=== PATIENT | female | born 1960 | race African-American/Black ===

== ENCOUNTER 2018-12-08 10:16 | Outpatient (CLI) | payer OTHER ==
[~2018-12-08 10:16] MED LIST: EPINEPHrine 1 MG/ML AMP ONE; Iopamidol 300 61% 50 ML VIAL FS ONE; Lidocaine 1% PF 10 ML AMP ONE; Sodium Chloride 0.9% (PF) 10 ML VIAL ONE
--- NOTE | 2018-12-08 14:07 | RAD ---
EXAM: XR Shoulder Lt Arthrogram PROVIDED CLINICAL HISTORY: Left shoulder pain. COMPARISON: None FLUOROSCOP y: Total fluoroscopy time is 1 minute with total dose of 68 mcGy meter squared TECHNIQUE: The procedure including risks and complications including bleeding were discussed with the patient, i nformed consent was obtained. Patient was placed on the fluoroscopy table in the supine position. An area overlying the superior one third of the left glenohumeral joint was marked. The area was meti culously prepped and draped in the usual sterile fashion. Skin and subcutaneous tissues were infiltrated with buffered 1% lidocaine for local anesthesia at the intended puncture site. A 22-gauge spinal needle was advanced into the left glenohumeral joint. Inner stylette was removed and injection of contrast was performed with free flow of contrast from th e tip of the needle. As a result, approximately 12 mL of a mixture consisting of nonionic contrast, sterile saline, and a small amount of epinephrine was instilled into the left glenohumeral joint. The needle was removed, and hemostasis was achieved with direct pressure. Dry sterile dressing was placed. Patient was transported to CT for further imaging. IMPRESSION: 1. Technically successful left shoulder arthrogram. Please see CT scan left shoulder post arthrogram for further details. 2. Left glenohumeral osteoarthropathy with findings suggesting intra-articular loose bodies.
--- NOTE | 2018-12-08 15:32 | CT ---
LEFT SHOULDER CT SCAN WITH POST ARTHROGRAM CONTRAST: HISTORY: Arthritis of the glenohumeral joint, left shoulder pain. FINDINGS: There are AC joint arthrosis changes with some subchondral cystic change. There are prominent hypert rophic osteophytosis changes off the superior posterior glenoid as well as the anterior and posterior humeral head regions. Irregular calcific foci are noted within the subcoracoid recess, evidence for synovial osteochondromas. Marked narrowing and sclerosis of the glenohumeral joint with some subch ondral cystic changes. No evidence for a complete full-thickness rotator cuff tear. Supraspinatus m uscle demonstrates some mild to moderate muscle volume loss. No evidence for acute fracture or dislo cation. Evidence for interstitial undersurface tearing of the subscapularis tendon. IMPRESSION: Severe glenohumeral joint arthrosis with marked joint space loss and sclerosis with extensive hypertr ophic osteophytosis off the glenoid as well as the humeral head. Multiple ossific foci within the merritt bcoracoid recess, evidence for synovial osteochondromas. Mild to moderate muscle volume loss of the supraspinatus muscle. No evidence for overt complete full-thickness or retracted rotator cuff tear. Evidence for undersurface and interstitial tearing of the subscapularis tendon. POS: [facility]
== END 2018-12-08 10:17 | disposition home or self-care (01) ==
LOC: RAD 10:16
PROVIDERS: ATTEND Orthopaedic Surgery
DX: M19.012 Primary osteoarthritis, left shoulder (principal)
CPT/HCPCS: 23350; J0171; J3490; Q9967

== ENCOUNTER 2019-03-09 12:00 | Inpatient (IN) | payer OTHER ==
[2019-03-16 12:42] VITALS: BMI 43.5
[2019-03-24] MEDS ORDERED: Levofloxacin 500 mg/D5W 100 ml Premix Bag ONE (06:22)
[2019-03-24] MEDS ORDERED: Sodium Chloride 0.9% 100 ML ONE (06:22)
[2019-03-24] MEDS ORDERED: Tranexamic Acid 1,000 MG/10 ML VIAL ONE (06:22)
[2019-03-24] MEDS ORDERED: Midazolam HCl 2 mg/2 ml Vial ONE (06:40)
[2019-03-24] MEDS ORDERED: Fentanyl 100 MCG/2 ML VIAL ONE (06:40)
[2019-03-24] MEDS ORDERED: Vancomycin HCl 1.5 GM in Sodium Chloride 0.9% 250 ML 300 ML IVPB SCH (06:45)
[2019-03-24] MEDS ORDERED: HYDROcodone/Acetaminophen 10/325 mg Tablet PO PRN ×3 (06:49→07:41)
[2019-03-24] MEDS ORDERED: traMADol HCl 50 MG TAB PO PRN ×4 (06:49→07:41)
[2019-03-24] MEDS ORDERED: Vancomycin HCl 1 GM in Premix Bag 1 BAG IVPB SCH (07:00)
[2019-03-24] MEDS ORDERED: Ropivacaine 0.2% 550 ML 550 ML NERVE BLCK SCH (07:41)
[2019-03-24] MEDS ORDERED: Zolpidem Tartrate 5 MG TAB PO PRN (07:41)
[2019-03-24] MEDS ORDERED: Ketorolac Tromethamine 30 MG/ML VIAL IVP PRN (07:41)
[2019-03-24] MEDS ORDERED: Ondansetron PF 4 MG/2 ML Vial IVP PRN (07:41)
[2019-03-24] MEDS ORDERED: Promethazine HCl 25 MG/ML VIAL IM PRN (07:41)
[2019-03-24] MEDS ORDERED: METFORMIN HCL PO SCH ×2 (09:00)
[2019-03-24] MEDS ORDERED: SAXAGLIPTIN HCL PO SCH ×2 (09:00)
[2019-03-24] MEDS ORDERED: Non-Formulary Item 1 EACH (Fluoxetine Hcl [Fluoxetine Hcl] 20 MG) PO SCH (09:00)
[2019-03-24] MEDS ORDERED: EMPAGLIFLOZIN PO SCH (09:00)
[2019-03-24] MEDS ORDERED: Non-Formulary Item 1 EACH (Insulin Detemir [Levemir Flextouch] 60 UNIT) SC SCH (09:00)
[2019-03-24] MEDS ORDERED: Topiramate 25 MG TAB PO SCH (09:00)
[2019-03-24] MEDS ORDERED: Non-Formulary Item 1 EACH (Gabapentin [Gabapentin] 2 TAB) PO SCH (09:00)
[2019-03-24] MEDS ORDERED: Non-Formulary Item 1 EACH (Empagliflozin [Jardiance] 1 TAB) PO SCH (09:00)
[2019-03-24] MEDS ORDERED: Atorvastatin Calcium 10 MG TAB PO SCH (09:00)
[2019-03-24] MEDS ORDERED: Ropivacaine 0.5% HCl/PF (150 MG/30 ML VIAL) ONE (09:42)
[2019-03-24] MEDS ORDERED: Promethazine HCl 25 MG/ML VIAL ONE (09:52)
[2019-03-24] MEDS ORDERED: PROPOFOL 200 MG/20 ML VIAL ONE (10:13)
[2019-03-24] MEDS ORDERED: Glycopyrrolate 0.2 MG/ML 5 ML SYRINGE ONE (10:13)
[2019-03-24] MEDS ORDERED: Ondansetron PF 4 MG/2 ML Vial ONE (10:13)
[2019-03-24] MEDS ORDERED: PHENYLEPHRINE-NS 100 MCG/ML 10 ML SYRINGE ONE (10:13)
[2019-03-24] MEDS ORDERED: Ketorolac Tromethamine 30 MG/ML VIAL ONE (10:13)
[2019-03-24] MEDS ORDERED: Rocuronium Bromide 10 MG/ML (10ML VIAL) ONE (10:13)
[2019-03-24] MEDS ORDERED: ePHEDrine 50 MG/ML VIAL ONE (10:13)
--- NOTE | 2019-03-24 11:24 | OP ---
DATE OF PROCEDURE: 03/24/2019 PREOPERATIVE DIAGNOSIS: Rotator cuff arthropathy, left shoulder. POSTOPERATIVE DIAGNOSIS: Rotator cuff arthropathy, left shoulder. PROCEDURES PERFORMED: Reverse total shoulder arthroplasty and biceps tenodesis. DENTAL SCHEDULER: Ekta Urbina PA-C BLOOD LOSS: 200. SPECIMEN: None. DRAIN: None. COMPLICATIONS: None. NARRATIVE REPORT: After appropriate consent was obtained, the patient was taken to the operating room where general anesthesia was induced. The patient was placed in a beach chair position. Left arm was prepped and draped in the usual sterile fashion. Oblique incision was made in the deltopectoral interval. Cephalic vein was identified and preserved. Dissection was carried down to the conjoint tendon which was retracted medially. The subscapularis was taken down. The biceps tendon was in poor condition. It was taken down off the superior glenoid tubercle and tenodesed to the pectoralis tendon. Excess tendon was removed. The shoulder was then easily dislocated. I opened the humerus with a T handle and then cut a 20 mm retroversion superior cut. The subscapularis had been previously tagged. I used a subscapularis to follow this down to the anterior glenoid and a Bankart retractor was placed anteriorly, and drill was placed posteriorly. I drilled a center hole in the glenoid and reamed with a 1-step reamer. Irrigation was performed. The base plate was deployed without difficulty. Screws were inserted in the usual technique with good compression and fixation. Glenosphere was deployed without difficulty and the screw was tightened. Attention was turned back to the humerus which was opened with a T handle, and after using the acetabular reamer, I then also used a metaphyseal reamer. The appropriate size stem was trialed and polyethylene was trialed until the implants were determined as above. I did drill holes through the humerus, and a cottony Dacron suture was placed around the prosthesis through bone to facilitate repair of the subscapularis. Irrigation was performed. Permanent implants were placed. Shoulder was reduced. The subscapularis was repaired back to bone using the cottony Dacron suture. Irrigation performed again. The deltopectoral interval was tacked shut with 0 Vicryl, subcutaneous tissue was closed with 2-0 Vicryl, skin was closed with ryan, and sterile dressing was applied. Job ID: [id number]
[2019-03-24] MEDS: Enoxaparin Sodium 40 MG/0.4 ML SYRINGE SC SCH (14:31)
[2019-03-24] MEDS: FLUoxetine HCl 20 MG CAP PO SCH (14:47)
[2019-03-24] MEDS: Atorvastatin Calcium 10 MG TAB PO SCH (14:47)
[2019-03-24] MEDS: Lactated Ringer's 1,000 ML IV SCH ×2 (14:47→20:03)
[2019-03-24] MEDS: Amlodipine 5 MG TAB PO SCH (14:47)
[2019-03-24] MEDS: Insulin Glargine 60 UNITS in Pre-Filled Syringe 1 EACH SC SCH (14:48)
[2019-03-24] MEDS: Lisinopril/Hydrochlorothiazide 20/25 mg Tablet PO SCH (14:48)
[2019-03-24] MEDS: Topiramate 25 MG TAB PO SCH ×2 (14:48→20:04)
[2019-03-24] MEDS: Gabapentin 400 MG CAP PO SCH ×2 (14:48→20:04)
[2019-03-24] MEDS ORDERED: FLU VACC QS2019-20(6MOS UP)/PF 60 MCG/0.5 ML SYRINGE IM ONE (16:00)
[2019-03-24] MEDS ORDERED: Insulin Glargine 40 UNITS in Pre-Filled Syringe 1 EACH SC SCH (21:00)
[2019-03-24] MEDS ORDERED: INSULIN DETEMIR 40 UNIT SQ SCH (21:00)
[2019-03-24] MEDS: HYDROcodone/Acetaminophen 10/325 mg Tablet PO PRN (21:21)
[2019-03-25] MEDS: HYDROcodone/Acetaminophen 10/325 mg Tablet PO PRN (08:50)
[2019-03-25] MEDS: Amlodipine 5 MG TAB PO SCH (08:51)
[2019-03-25] MEDS: Atorvastatin Calcium 10 MG TAB PO SCH (08:51)
[2019-03-25] MEDS: Enoxaparin Sodium 40 MG/0.4 ML SYRINGE SC SCH (08:51)
[2019-03-25] MEDS: Lisinopril/Hydrochlorothiazide 20/25 mg Tablet PO SCH (08:52)
[2019-03-25] MEDS: Topiramate 25 MG TAB PO SCH (08:52)
[2019-03-25] MEDS: FLUoxetine HCl 20 MG CAP PO SCH (08:52)
[2019-03-25] MEDS: Insulin Glargine 60 UNITS in Pre-Filled Syringe 1 EACH SC SCH (10:13)
[2019-03-25] MEDS: Gabapentin 400 MG CAP PO SCH (10:14)
[2019-03-25 12:26] VITALS: BP 138/78; TEMP 98.2
== END 2019-03-25 13:19 | disposition home or self-care (01) | DRG 483 ==
LOC: SURG A 03-24 06:03 → SJJU 03-24 13:45
PROVIDERS: ADMIT Orthopaedic Surgery; ATTEND Orthopaedic Surgery
PROC: 0RRK00Z Replacement of Left Shoulder Joint with Reverse Ball and Socket Synthetic Substitute, Open Approach (ICD-10-PCS; principal; 2019-03-24)
PROC: 0LS40ZZ Reposition Left Upper Arm Tendon, Open Approach (ICD-10-PCS; 2019-03-24)
DX: M19.019 Primary osteoarthritis, unspecified shoulder (principal); I10 Essential (primary) hypertension; E11.9 Type 2 diabetes mellitus without complications; F32.9 Major depressive disorder, single episode, unspecified; G43.909 Migraine, unspecified, not intractable, without status migrainosus; H91.90 Unspecified hearing loss, unspecified ear; J45.909 Unspecified asthma, uncomplicated; M75.102 Unspecified rotator cuff tear or rupture of left shoulder, not specified as traumatic; Z79.02 Long term (current) use of antithrombotics/antiplatelets; Z85.9 Personal history of malignant neoplasm, unspecified; Z90.710 Acquired absence of both cervix and uterus; Z90.722 Acquired absence of ovaries, bilateral; Z79.4 Long term (current) use of insulin; Z79.82 Long term (current) use of aspirin; Z88.0 Allergy status to penicillin; Z88.8 Allergy status to other drugs, medicaments and biological substances; Z90.49 Acquired absence of other specified parts of digestive tract; Z91.013 Allergy to seafood
CPT/HCPCS: 36416; A4306; C1713; J1650; J1815; J1956; J2250; J2405; J2550; J2795; J3010; J3370; J3490; J7050

== ENCOUNTER 2019-03-16 12:15 | Outpatient (CLI) | payer OTHER ==
[2019-03-16 13:54] LABS: #Basophils 0.1 thou/uL (0.0-0.2); #Eosinphils 0.1 thou/uL (0.0-0.7); #Lymphocytes 2.9 thou/uL (1.20-3.40); #Monocytes 0.5 thou/uL (0.11-0.59); #Neutrophils 3.3 thou/uL (1.40-6.50); %Basophils 0.8 % (0.0-1.0); %Eosinophils 1.9 % (0.0-10.0); %Lymphocytes 41.7 % (21.0-51.0); %Monocytes 7.6 % (0.0-10.0); Hemoglobin 12.7 g/dL (12.0-16.0); Mean Corpuscular Hemoglobin 27.1 pg (27.0-31.0); Mean Corpuscular Volume 84.8 fL (78.0-98.0); Mean Platelet Volume 10.1 fL (7.4-10.4); Platelet Count 257 thou/uL (130-400); RBC Distribution Width 14.2 % (11.5-14.5); Red Blood Cell (RBC) Count 4.69 mill/uL (4.20-5.40); White Blood Cell (WBC) Count 6.9 thou/uL (4.8-10.8)
[2019-03-16 14:01] LABS: Bacteria/HPF None Seen HPF (None Seen); Bilirubin Negative (Negative); Blood, Urine Negative (Negative); Clarity Clear (Clear); Glucose, Urine (Dipstick) Greater than 1000 mg/dL (Negative); Leukocyte Negative Leu/uL (Negative); Nitrite Negative (Negative); Protein, Urine (Dipstick) Negative (Neg-Trace); RBC/HPF 0-3 HPF (0-3); Squamous Epithelial None Seen HPF (0-3); Urobilinogen Normal mg/dL (Less than 2); WBC/HPF 0-3 HPF (0-3)
[2019-03-16 14:12] LABS: Prothrombin Time 12.7 SEC (12.0-14.7)
[2019-03-16 14:15] LABS: Anion Gap 12 mmol/L (10-20); BUN (Urea Nitrogen) 16 mg/dL (9.8-20.1); Calc. Creatinine Clearance 0 mL/min (70-130); Calcium 9.7 mg/dL (7.8-10.44); Carbon Dioxide 25 mmol/L (22-29); Chloride 107 mmol/L (98-107); Estimated GFR-MDRD 74; Glucose 118 mg/dL (70-105); Potassium 3.7 mmol/L (3.5-5.1); Sodium 140 mmol/L (136-145)
--- NOTE | 2019-03-20 17:11 | EKG ---
Test Reason : Blood Pressure : / mmHG Vent. Rate : 054 BPM Atrial Rate : 054 BPM P-R Int : 190 ms QRS Dur : 158 ms QT Int : 482 ms P-R-T Axes : 015 -83 016 degrees QTc Int : 457 ms Sinus bradycardia with occasional Premature ventricular complexes and Possible Premature atrial compl exes with Abberant conduction Left axis deviation Right bundle branch block Abnormal ECG When compared with ECG of 01-MAY-2016 14:44, Premature ventricular complexes are now Present Nonspecific T wave abnormality, improved in Anterior leads Confirmed by VALENTINO CASTELAN (2) on 03/20/2019 5:11:25 PM Referred By: SARAH Confirmed By:VALENTINO CASTELAN
== END 2019-03-16 12:16 | disposition home or self-care (01) ==
LOC: LABBT 12:15
PROVIDERS: ATTEND Orthopaedic Surgery
DX: Z01.818 Encounter for other preprocedural examination (principal); M75.102 Unspecified rotator cuff tear or rupture of left shoulder, not specified as traumatic; M19.012 Primary osteoarthritis, left shoulder
CPT/HCPCS: 80048; 81001; 85025; 85610; 85730; 93005; 93010

== ENCOUNTER 2023-01-21 13:15 | Outpatient (CLI) | payer OTHER | END 2023-01-21 13:16 | disposition home or self-care (01) | LOC: PET 13:15 | PROVIDERS: ATTEND Internal Medicine Hematology & Oncology | DX: R59.1 Generalized enlarged lymph nodes (principal); C91.10 Chronic lymphocytic leukemia of B-cell type not having achieved remission | CPT/HCPCS: 78815; A9552 ==

== ENCOUNTER 2023-11-25 15:47 | Emergency (ER) | payer OTHER | END 2023-11-25 16:30 | disposition home or self-care (01) | LOC: ERS 15:47 | DX: H00.012 Hordeolum externum right lower eyelid (principal); H02.842 Edema of right lower eyelid; E11.40 Type 2 diabetes mellitus with diabetic neuropathy, unspecified; I10 Essential (primary) hypertension; Z86.73 Personal history of transient ischemic attack (TIA), and cerebral infarction without residual deficits | CPT/HCPCS: 99282 ==

== ENCOUNTER 2024-01-08 13:15 | Observation (INO) | payer OTHER ==
[2024-01-08] MEDS ORDERED: Ondansetron ODT 4 MG TAB ONE (14:51)
[2024-01-08] MEDS ORDERED: Meclizine HCl 25 MG TAB ONE (14:51)
[2024-01-08 15:24] LABS: #Basophils Less than 0.03 10x3/uL (0.0-0.2); %Basophils 0.2 % (0.0-1.0); %Eosinophils 1.1 % (0.0-10.0); %Lymphocytes 34.6 % (21.0-51.0); %Monocytes 9.6 % (0.0-10.0); %Neutrophils 54.1 % (42.0-75.0); Hematocrit 41.4 % (36.0-47.0); Hemoglobin 12.9 g/dL (12.0-16.0); Mean Corpuscular HGB CONC 31.2 g/dL (32.0-36.0); Mean Corpuscular Hemoglobin 27.4 pg (27.0-31.0); Mean Corpuscular Volume 87.9 fL (78.0-98.0); Mean Platelet Volume 11.2 fL (7.4-10.4); Platelet Count 287 10x3/uL (130-400); RBC Distribution Width 15.9 % (11.5-14.5); Red Blood Cell (RBC) Count 4.71 mill/uL (4.20-5.40)
[2024-01-08] MEDS ORDERED: Acetaminophen 500 MG TAB ONE (15:52)
[2024-01-08 15:53] LABS: ALT (SGPT) 33 U/L (8-55); AST (SGOT) 31 U/L (5-34); Albumin 3.7 g/dL (3.4-4.8); Alkaline Phosphatase 111 U/L (40-110); Anion Gap 10 mmol/L (10-20); BUN (Urea Nitrogen) 7 mg/dL (9.8-20.1); Bilirubin, Total 0.6 mg/dL (0.2-1.2); Calc. Creatinine Clearance 0 mL/min (70-130); Calcium 9.1 mg/dL (7.8-10.44); Carbon Dioxide 25 mmol/L (23-31); Chloride 110 mmol/L (98-107); Estimated GFR 85; Globulin 3.4 g/dL (2.4-3.5); Glucose 143 mg/dL (80-115); Potassium 3.4 mmol/L (3.5-5.1); Protein, Total 7.1 g/dL (5.8-8.1); Sodium 142 mmol/L (136-145)
[2024-01-08] MEDS ORDERED: Iopamidol-370 76% 500 ML MDV (1 ML CHARGE) ONE (15:55)
[2024-01-08 17:21] LABS: Magnesium 2.1 mg/dL (1.6-2.6)
[2024-01-08 17:24] LABS: Troponin I Less than 0.010 ng/mL (< 0.028)
[2024-01-08] MEDS ORDERED: Insulin Lispro 100 UNIT/ML 10 ML VIAL SC PRN (18:14)
[2024-01-08] MEDS ORDERED: hydrALAZINE 20 MG/ML VIAL SLOW IVP PRN (18:14)
[2024-01-08] MEDS ORDERED: Dextrose 5% in Water 1,000 ML IV PRN (18:14)
[2024-01-08] MEDS ORDERED: Dextrose 50% Abboject 50 ML SYRINGE SLOW IVP PRN (18:14)
[2024-01-08] MEDS ORDERED: Glucagon 1 MG/ML KIT IM PRN (18:14)
[2024-01-08] MEDS ORDERED: Potassium Chloride 20 MEQ TAB PO SCH (18:30)
[2024-01-08] MEDS ORDERED: Clopidogrel Bisulfate 75 MG TAB PO SCH (18:30)
[2024-01-08] MEDS ORDERED: Meclizine HCl 25 MG TAB PO PRN (19:05)
[2024-01-08] MEDS ORDERED: Heparin 5,000 UNITS/ML VIAL SC SCH (21:00)
[2024-01-08] MEDS ORDERED: Atorvastatin Calcium 40 MG TAB PO SCH (21:00)
[2024-01-09] MEDS ORDERED: Clopidogrel Bisulfate 75 MG TAB PO SCH (09:00)
== END 2024-01-08 22:14 | disposition left against medical advice (07) ==
LOC: ERS 13:15 → ERHOLD 18:00
PROVIDERS: ADMIT Internal Medicine; ATTEND Internal Medicine
DX: R29.90 Unspecified symptoms and signs involving the nervous system (principal); R47.81 Slurred speech; I25.10 Atherosclerotic heart disease of native coronary artery without angina pectoris; E11.9 Type 2 diabetes mellitus without complications; G47.33 Obstructive sleep apnea (adult) (pediatric); E78.5 Hyperlipidemia, unspecified; K75.81 Nonalcoholic steatohepatitis (NASH); I10 Essential (primary) hypertension; Z79.82 Long term (current) use of aspirin; Z91.013 Allergy to seafood; Z88.0 Allergy status to penicillin; Z79.4 Long term (current) use of insulin; Z79.899 Other long term (current) drug therapy; Z79.02 Long term (current) use of antithrombotics/antiplatelets; Z86.73 Personal history of transient ischemic attack (TIA), and cerebral infarction without residual deficits; Z90.710 Acquired absence of both cervix and uterus
CPT/HCPCS: 36415; 70450; 70496; 70498; 80053; 83735; 84484; 85025; 93005; G0378; Q0162; Q9967

== ENCOUNTER 2024-02-10 13:36 | Outpatient (CLI) | payer OTHER ==
[~2024-02-10 13:36] MED LIST changes: -EPINEPHrine 1 MG/ML AMP ONE; -Iopamidol 300 61% 50 ML VIAL FS ONE; -Lidocaine 1% PF 10 ML AMP ONE; +Magnevist 469MG/ML 20 ML VIAL ONE; -Sodium Chloride 0.9% (PF) 10 ML VIAL ONE
== END 2024-02-10 13:37 | disposition home or self-care (01) ==
LOC: MRI 13:36
PROVIDERS: ATTEND Nurse Practitioner Family
DX: Z86.73 Personal history of transient ischemic attack (TIA), and cerebral infarction without residual deficits (principal); I67.89 Other cerebrovascular disease
CPT/HCPCS: 70553; 76377; A9579

== ENCOUNTER 2024-06-07 15:39 | Emergency (ER) | payer OTHER | END 2024-06-07 17:55 | disposition left against medical advice (07) | LOC: ERS 15:39 | DX: Z53.21 Procedure and treatment not carried out due to patient leaving prior to being seen by health care provider (principal) ==

== ENCOUNTER 2025-02-01 10:15 | Outpatient (CLI) | payer MEDICAID | END 2025-02-01 10:16 | disposition home or self-care (01) | LOC: PET 10:15 | PROVIDERS: ATTEND Internal Medicine Hematology & Oncology | DX: C83.05 Small cell B-cell lymphoma, lymph nodes of inguinal region and lower limb (principal); E66.01 Morbid (severe) obesity due to excess calories; R59.0 Localized enlarged lymph nodes | CPT/HCPCS: 78815; A9552 ==

== ENCOUNTER 2025-02-21 20:17 | Inpatient (IN) | payer MEDICARE, MEDICAID ==
[~2025-02-21 20:17] MED LIST changes: +Iopamidol-370 76% 500 ML MDV (1 ML CHARGE) ONE; -Magnevist 469MG/ML 20 ML VIAL ONE
[2025-02-21] MEDS ORDERED: Ondansetron PF 4 MG/2 ML Vial ONE (22:41)
[2025-02-21 22:53] LABS: Hematocrit 13.9 % (36.0-47.0); Hemoglobin 4.2 g/dL (12.0-16.0); Mean Corpuscular Hemoglobin 35.3 pg (27.0-31.0); Mean Corpuscular Volume 116.8 fL (78.0-98.0); Platelet Count 399 10x3/uL (130-400); Red Blood Cell (RBC) Count 1.19 mill/uL (4.20-5.40); White Blood Cell (WBC) Count 12.77 10x3/uL (4.8-10.8)
[2025-02-21 22:55] LABS: ALT (SGPT) 15 U/L (Less than 34); AST (SGOT) 39 U/L (11-34); Albumin 3.3 g/dL (3.1-4.5); Alkaline Phosphatase 121 U/L (40-110); Anion Gap 14 mmol/L (10-20); BUN (Urea Nitrogen) 21 mg/dL (9.8-20.1); Bilirubin, Total 5.6 mg/dL (0.3-1.2); Calc. Creatinine Clearance 0 mL/min (70-130); Calcium 8.3 mg/dL (7.8-10.44); Carbon Dioxide 22 mmol/L (23-31); Chloride 107 mmol/L (98-107); Globulin 4.1 g/dL (2.4-3.5); Glucose 249 mg/dL (80-115); Magnesium 2.5 mg/dL (1.6-2.6); Potassium 4.0 mmol/L (3.5-5.1); Sodium 139 mmol/L (136-145)
[2025-02-21 23:15] LABS: Anisocytosis SLIGHT = 6-15 cells HPF (0-5); Macrocytosis SLIGHT = 6-15 cells HPF (0-5); Nucleated RBC (Manual Ct) 16 % (0); Platelet Adequacy Comment Platelets Normal; Polychromasia SLIGHT = 2-3 cells HPF (0-2); Smudge Cells 8.8 %; Stomatocytes SLIGHT = 2-5 cells HPF (0-1)
[2025-02-21 23:39] LABS: Bacteria/HPF None Seen HPF (None Seen); CAUTI Indications for Culture < 2yrs of age; Glucose, Urine (Dipstick) Greater than 1000 mg/dL (Negative); Leukocyte 25 Leu/uL (Negative); Protein, Urine (Dipstick) Negative (Neg-Trace); RBC/HPF 0-3 HPF (0-3); Specific Gravity, Urine 1.023 (1.002-1.036); WBC/HPF 0-3 HPF (0-3)
[2025-02-21 23:40] LABS: Urine Culture Reflex Yes Yes
[2025-02-22 01:21] LABS: Iron 240 ug/dL (50-170); Iron Binding Capacity, Total 235 mcg/dL (265-497)
[2025-02-22] MEDS ORDERED: Glucagon 1 MG/ML KIT IM PRN (01:37)
[2025-02-22] MEDS ORDERED: Ondansetron PF 4 MG/2 ML Vial IVP PRN (01:37)
[2025-02-22] MEDS ORDERED: Dextrose 50% Abboject 50 ML SYRINGE SLOW IVP PRN (01:37)
[2025-02-22 02:15] VITALS: BMI 39.0
[2025-02-22 05:09] LABS: Ferritin 2060.11 ng/mL (10-291)
[2025-02-22 05:11] LABS: Vitamin B12 662.0 pg/mL (211-911)
[2025-02-22 08:00] LABS: Hematocrit 13.4 % (36.0-47.0); Hemoglobin 4.0 g/dL (12.0-16.0); Mean Corpuscular Hemoglobin 36.4 pg (27.0-31.0); Mean Corpuscular Volume 121.8 fL (78.0-98.0); Platelet Count 384 10x3/uL (130-400); Red Blood Cell (RBC) Count 1.10 mill/uL (4.20-5.40); White Blood Cell (WBC) Count 13.93 10x3/uL (4.8-10.8)
[2025-02-22 08:13] LABS: ALT (SGPT) 14 U/L (Less than 34); AST (SGOT) 37 U/L (11-34); Albumin 3.2 g/dL (3.1-4.5); Alkaline Phosphatase 117 U/L (40-110); Anion Gap 14 mmol/L (10-20); BUN (Urea Nitrogen) 21 mg/dL (9.8-20.1); Bilirubin, Total 5.3 mg/dL (0.3-1.2); Calc. Creatinine Clearance 130 mL/min (70-130); Calcium 8.0 mg/dL (7.8-10.44); Carbon Dioxide 19 mmol/L (23-31); Chloride 109 mmol/L (98-107); Globulin 4.3 g/dL (2.4-3.5); Glucose 271 mg/dL (80-115); Potassium 4.2 mmol/L (3.5-5.1); Sodium 138 mmol/L (136-145)
[2025-02-22 08:14] LABS: Bilirubin, Direct 1.0 mg/dL (0.1-0.3); Uric Acid 9.5 mg/dL (2.5-6.2)
[2025-02-22] MEDS ORDERED: diphenhydrAMINE 25 MG CAP PO PRN (08:53)
[2025-02-22] MEDS ORDERED: OCTAGAM 10% (5 GM/50 ML VIAL) IVPB SCH (09:00)
[2025-02-22 09:13] LABS: Macrocytosis MODERATE=16-30 cells HPF (0-5); Nucleated RBC (Manual Ct) 13 % (0); Platelet Adequacy Comment Platelets Normal; Polychromasia MODERATE = 3-4 cells HPF (0-2); Smudge Cells 5.6 %; Spherocytes SLIGHT = 1-5 cells HPF (None Seen); Stomatocytes SLIGHT = 2-5 cells HPF (0-1)
[2025-02-22] MEDS: Ciprofloxacin Lactate/D5W 400 MG in Premix 1 BAG IVPB SCH (09:36)
[2025-02-22] MEDS: Mupirocin 1 GM TUBE TP SCH (09:36)
[2025-02-22] MEDS: Allopurinol 300 MG TAB PO SCH (09:36)
[2025-02-22] MEDS: PRIVIGEN IVPB SCH (10:21)
[2025-02-22 12:38] LABS: Glucose 317 mg/dL (80-115)
[2025-02-22] MEDS: Pantoprazole 40 MG DR.TAB PO SCH (13:31)
[2025-02-22 17:51] LABS: Hematocrit 17.0 % (36.0-47.0); Hemoglobin 5.4 g/dL (12.0-16.0); Mean Corpuscular Hemoglobin 33.3 pg (27.0-31.0); Mean Corpuscular Volume 104.9 fL (78.0-98.0); Platelet Count 367 10x3/uL (130-400); Red Blood Cell (RBC) Count 1.62 mill/uL (4.20-5.40); White Blood Cell (WBC) Count 12.50 10x3/uL (4.8-10.8)
[2025-02-22 18:10] LABS: Glucose 565 mg/dL (80-115)
[2025-02-22 18:50] LABS: Anisocytosis MODERATE=16-30 cells HPF (0-5); Macrocytosis SLIGHT = 6-15 cells HPF (0-5); Nucleated RBC (Manual Ct) 17 % (0); Platelet Adequacy Comment Platelets Normal; Polychromasia MODERATE = 3-4 cells HPF (0-2); Schistocytes SLIGHT = 2-5 cells HPF (0-1); Smudge Cells 5.6 %; Stomatocytes MODERATE= 6-15 cells HPF (0-1); Toxic Granulation SLIGHT
[2025-02-22] MEDS: HumuLIN 70/30 100 Unit/ml 10 ml Vial SC SCH (20:42)
[2025-02-23 01:29] LABS: Hematocrit 16.0 % (36.0-47.0); Hemoglobin 4.9 g/dL (12.0-16.0); Mean Corpuscular Hemoglobin 31.6 pg (27.0-31.0); Mean Corpuscular Volume 103.2 fL (78.0-98.0); Platelet Count 338 10x3/uL (130-400); Red Blood Cell (RBC) Count 1.55 mill/uL (4.20-5.40); White Blood Cell (WBC) Count 13.14 10x3/uL (4.8-10.8)
[2025-02-23 02:07] LABS: Anisocytosis SLIGHT = 6-15 cells HPF (0-5); Macrocytosis SLIGHT = 6-15 cells HPF (0-5); Nucleated RBC (Manual Ct) 28 % (0); Platelet Adequacy Comment Platelets Normal; Polychromasia MODERATE = 3-4 cells HPF (0-2)
[2025-02-23 02:44] LABS: ALT (SGPT) 13 U/L (Less than 34); AST (SGOT) 28 U/L (11-34); Albumin 2.9 g/dL (3.1-4.5); Alkaline Phosphatase 108 U/L (40-110); Anion Gap 8 mmol/L (10-20); BUN (Urea Nitrogen) 27 mg/dL (9.8-20.1); Bilirubin, Direct 0.8 mg/dL (0.1-0.3); Bilirubin, Total 2.8 mg/dL (0.3-1.2); Calc. Creatinine Clearance 118 mL/min (70-130); Calcium 7.6 mg/dL (7.8-10.44); Carbon Dioxide 21 mmol/L (23-31); Chloride 107 mmol/L (98-107); Globulin 4.6 g/dL (2.4-3.5); Glucose 339 mg/dL (80-115); Potassium 3.9 mmol/L (3.5-5.1); Sodium 132 mmol/L (136-145); Uric Acid 8.0 mg/dL (2.5-6.2)
[2025-02-23] MEDS: Pantoprazole 40 MG DR.TAB PO SCH (08:31)
[2025-02-23 08:41] LABS: Hematocrit 25.1 % (36.0-47.0); Hemoglobin 7.9 g/dL (12.0-16.0); Mean Corpuscular Hemoglobin 30.9 pg (27.0-31.0); Mean Corpuscular Volume 98.0 fL (78.0-98.0); Platelet Count 305 10x3/uL (130-400); Red Blood Cell (RBC) Count 2.56 mill/uL (4.20-5.40); White Blood Cell (WBC) Count 12.14 10x3/uL (4.8-10.8)
[2025-02-23] MEDS ORDERED: Bupivacaine 0.25% HCL 30 ML VIAL ONE (15:01)
[2025-02-23] MEDS ORDERED: Bacitracin Zinc Ointment 30 gm TUBE ONE (15:01)
[2025-02-23] MEDS ORDERED: Lidocaine 2% PF 100 mg/5 ml Syringe ONE (15:06)
[2025-02-23] MEDS ORDERED: Ondansetron PF 4 MG/2 ML Vial ONE (15:06)
[2025-02-23] MEDS ORDERED: PROPOFOL 20 ML ONE ×2 (15:06→16:03)
[2025-02-23] MEDS ORDERED: Sodium Bicarb 50 MEQ/50 ML Abboject 8.4% SYRINGE ONE (15:10)
[2025-02-23] MEDS ORDERED: Sodium Bicarbonate 2.5 MEQ/5 ML SDV ONE (15:11)
[2025-02-23] MEDS ORDERED: fentaNYL PF 100 MCG/2 ML SYRINGE ONE (15:14)
[2025-02-23 16:35] VITALS: BMI 38.9
[2025-02-23] MEDS: Acetaminophen 325 MG TAB PO PRN (23:20)
[2025-02-24 03:28] LABS: Hematocrit 23.0 % (36.0-47.0); Hemoglobin 7.4 g/dL (12.0-16.0); Mean Corpuscular Hemoglobin 32.0 pg (27.0-31.0); Mean Corpuscular Volume 99.6 fL (78.0-98.0); Platelet Count 269 10x3/uL (130-400); Red Blood Cell (RBC) Count 2.31 mill/uL (4.20-5.40); White Blood Cell (WBC) Count 11.65 10x3/uL (4.8-10.8)
[2025-02-24 03:44] LABS: ALT (SGPT) 27 U/L (Less than 34); AST (SGOT) 56 U/L (11-34); Albumin 2.7 g/dL (3.1-4.5); Alkaline Phosphatase 109 U/L (40-110); Anion Gap 8 mmol/L (10-20); BUN (Urea Nitrogen) 21 mg/dL (9.8-20.1); Bilirubin, Total 1.9 mg/dL (0.3-1.2); Calc. Creatinine Clearance 136 mL/min (70-130); Calcium 7.3 mg/dL (7.8-10.44); Carbon Dioxide 20 mmol/L (23-31); Chloride 109 mmol/L (98-107); Globulin 5.3 g/dL (2.4-3.5); Glucose 256 mg/dL (80-115); Potassium 3.6 mmol/L (3.5-5.1); Sodium 133 mmol/L (136-145)
[2025-02-24 03:54] LABS: Anisocytosis MODERATE=16-30 cells HPF (0-5); Burr Cells SLIGHT = 2-5 cells HPF (0-1); Macrocytosis SLIGHT = 6-15 cells HPF (0-5); Nucleated RBC (Manual Ct) 31 % (0); Platelet Adequacy Comment Platelets Normal; Polychromasia MODERATE = 3-4 cells HPF (0-2); Smudge Cells 13.2 %
[2025-02-24] MEDS: PNEUMOC 20-VAL CONJ-DIP CRM/PF 0.5 ML SYRINGE IM ONE (12:44)
[2025-02-25 04:14] LABS: Hematocrit 23.6 % (36.0-47.0); Hemoglobin 7.7 g/dL (12.0-16.0); Mean Corpuscular Hemoglobin 33.6 pg (27.0-31.0); Mean Corpuscular Volume 103.1 fL (78.0-98.0); Platelet Count 234 10x3/uL (130-400); Red Blood Cell (RBC) Count 2.29 mill/uL (4.20-5.40); White Blood Cell (WBC) Count 9.72 10x3/uL (4.8-10.8)
[2025-02-25 04:48] LABS: ALT (SGPT) 39 U/L (Less than 34); AST (SGOT) 62 U/L (11-34); Albumin 2.7 g/dL (3.1-4.5); Alkaline Phosphatase 104 U/L (40-110); Anion Gap 7 mmol/L (10-20); BUN (Urea Nitrogen) 13 mg/dL (9.8-20.1); Bilirubin, Total 1.3 mg/dL (0.3-1.2); Calc. Creatinine Clearance 140 mL/min (70-130); Calcium 7.7 mg/dL (7.8-10.44); Carbon Dioxide 18 mmol/L (23-31); Chloride 111 mmol/L (98-107); Globulin 5.7 g/dL (2.4-3.5); Glucose 193 mg/dL (80-115); Potassium 4.0 mmol/L (3.5-5.1); Sodium 132 mmol/L (136-145)
[2025-02-25 04:50] LABS: Anisocytosis MODERATE=16-30 cells HPF (0-5); Macrocytosis SLIGHT = 6-15 cells HPF (0-5); Nucleated RBC (Manual Ct) 33 % (0); Platelet Adequacy Comment Platelets Normal; Polychromasia MODERATE = 3-4 cells HPF (0-2); Smudge Cells 10.7 %; Spherocytes SLIGHT = 1-5 cells HPF (None Seen)
[2025-02-25] MEDS: Insulin Glargine 30 UNITS/0.3 ML VIAL SC SCH (10:34)
[2025-02-25] MEDS: Senokot S 8.6-50 MG TAB PO SCH (21:58)
[2025-02-26 05:07] LABS: ALT (SGPT) 49 U/L (Less than 34); AST (SGOT) 70 U/L (11-34); Albumin 2.6 g/dL (3.1-4.5); Alkaline Phosphatase 110 U/L (40-110); Anion Gap 8 mmol/L (10-20); BUN (Urea Nitrogen) 14 mg/dL (9.8-20.1); Bilirubin, Total 1.5 mg/dL (0.3-1.2); Calc. Creatinine Clearance 170 mL/min (70-130); Calcium 8.1 mg/dL (7.8-10.44); Carbon Dioxide 21 mmol/L (23-31); Chloride 108 mmol/L (98-107); Globulin 5.4 g/dL (2.4-3.5); Glucose 229 mg/dL (80-115); Potassium 3.6 mmol/L (3.5-5.1); Sodium 133 mmol/L (136-145)
[2025-02-26 05:18] LABS: Hematocrit 27.0 % (36.0-47.0); Hemoglobin 8.6 g/dL (12.0-16.0); Mean Corpuscular Hemoglobin 31.9 pg (27.0-31.0); Mean Corpuscular Volume 100.0 fL (78.0-98.0); Platelet Count 214 10x3/uL (130-400); Red Blood Cell (RBC) Count 2.70 mill/uL (4.20-5.40); White Blood Cell (WBC) Count 7.88 10x3/uL (4.8-10.8)
[2025-02-26 05:49] LABS: Anisocytosis MODERATE=16-30 cells HPF (0-5); Macrocytosis SLIGHT = 6-15 cells HPF (0-5); Nucleated RBC (Manual Ct) 32 % (0); Plasma Cells 1 % (0-0); Platelet Adequacy Comment Platelets Normal; Polychromasia MODERATE = 3-4 cells HPF (0-2); Smudge Cells 17.3 %
[2025-02-26] MEDS: Insulin Glargine 30 UNITS/0.3 ML VIAL SC SCH (21:19)
[2025-02-27 10:27] LABS: Hematocrit 29.5 % (36.0-47.0); Hemoglobin 9.5 g/dL (12.0-16.0); Mean Corpuscular Hemoglobin 32.1 pg (27.0-31.0); Mean Corpuscular Volume 99.7 fL (78.0-98.0); Platelet Count 216 10x3/uL (130-400); Red Blood Cell (RBC) Count 2.96 mill/uL (4.20-5.40); White Blood Cell (WBC) Count 8.27 10x3/uL (4.8-10.8)
[2025-02-27 10:32] LABS: Anion Gap 12 mmol/L (10-20); BUN (Urea Nitrogen) 14 mg/dL (9.8-20.1); Calc. Creatinine Clearance 164 mL/min (70-130); Calcium 8.6 mg/dL (7.8-10.44); Carbon Dioxide 23 mmol/L (23-31); Chloride 104 mmol/L (98-107); Glucose 151 mg/dL (80-115); Potassium 3.5 mmol/L (3.5-5.1)
[2025-02-27 10:41] LABS: Sodium 135 mmol/L (136-145)
[2025-02-27 11:02] LABS: Anisocytosis SLIGHT = 6-15 cells HPF (0-5); Nucleated RBC (Manual Ct) 15 % (0); Platelet Adequacy Comment Platelets Normal; Polychromasia MODERATE = 3-4 cells HPF (0-2); Smudge Cells 18.4 %; Stomatocytes MODERATE= 6-15 cells HPF (0-1)
[2025-02-28 05:00] LABS: Anion Gap 10 mmol/L (10-20); BUN (Urea Nitrogen) 13 mg/dL (9.8-20.1); Calc. Creatinine Clearance 161 mL/min (70-130); Calcium 8.8 mg/dL (7.8-10.44); Carbon Dioxide 24 mmol/L (23-31); Chloride 103 mmol/L (98-107); Glucose 140 mg/dL (80-115); Potassium 3.7 mmol/L (3.5-5.1); Sodium 133 mmol/L (136-145)
[2025-02-28 05:17] LABS: Hematocrit 34.9 % (36.0-47.0); Hemoglobin 11.0 g/dL (12.0-16.0); Mean Corpuscular Hemoglobin 30.3 pg (27.0-31.0); Mean Corpuscular Volume 96.1 fL (78.0-98.0); Platelet Count 208 10x3/uL (130-400); Red Blood Cell (RBC) Count 3.63 mill/uL (4.20-5.40); White Blood Cell (WBC) Count 7.92 10x3/uL (4.8-10.8)
[2025-02-28 05:43] LABS: Anisocytosis SLIGHT = 6-15 cells HPF (0-5); Macrocytosis SLIGHT = 6-15 cells HPF (0-5); Nucleated RBC (Manual Ct) 4 % (0); Plasma Cells 1 % (0-0); Platelet Adequacy Comment Platelets Normal; Polychromasia MODERATE = 3-4 cells HPF (0-2); Schistocytes SLIGHT = 2-5 cells HPF (0-1); Smudge Cells 24.3 %; Stomatocytes MODERATE= 6-15 cells HPF (0-1)
[2025-02-28 18:42] VITALS: BP 137/78; TEMP 97.9
== END 2025-02-28 17:50 | disposition home or self-care (01) | DRG 803 ==
LOC: ERS 20:17 → ERHOLD 23:56 → EEVIPCON 02-22 00:35 → OBSVTOIN 02-22 00:35 → IMCU/EMU 02-22 00:50 → UNDODISIN 02-23 08:49 → MSONC 02-25 08:38
PROVIDERS: ADMIT Internal Medicine; ATTEND Family Medicine
PROC: 07B60ZZ Excision of Left Axillary Lymphatic, Open Approach (ICD-10-PCS; principal; 2025-02-22)
PROC: 30233N1 Transfusion of Nonautologous Red Blood Cells into Peripheral Vein, Percutaneous Approach (ICD-10-PCS; 2025-02-22)
PROC: 3E03329 Introduction of Other Anti-infective into Peripheral Vein, Percutaneous Approach (ICD-10-PCS; 2025-02-22)
DX: D59.10 Autoimmune hemolytic anemia, unspecified (principal); C81.10 Nodular sclerosis Hodgkin lymphoma, unspecified site; E87.1 Hypo-osmolality and hyponatremia; Z68.41 Body mass index [BMI] 40.0-44.9, adult; I10 Essential (primary) hypertension; K52.9 Noninfective gastroenteritis and colitis, unspecified; K76.0 Fatty (change of) liver, not elsewhere classified; G47.33 Obstructive sleep apnea (adult) (pediatric); E11.9 Type 2 diabetes mellitus without complications; I95.1 Orthostatic hypotension; E66.9 Obesity, unspecified; Z98.890 Other specified postprocedural states; Z90.49 Acquired absence of other specified parts of digestive tract; Z90.710 Acquired absence of both cervix and uterus; Z95.5 Presence of coronary angioplasty implant and graft; Z88.8 Allergy status to other drugs, medicaments and biological substances; Z91.013 Allergy to seafood; Z88.0 Allergy status to penicillin; Z79.02 Long term (current) use of antithrombotics/antiplatelets; Z86.73 Personal history of transient ischemic attack (TIA), and cerebral infarction without residual deficits
CPT/HCPCS: 36415; 36416; 36430; 70450; 71045; 74177; 80048; 80053; 81001; 82247; 82248; 82274; 82607; 82728; 83010; 83540; 83550; 83615; 83735; 83880; 84100; 84484; 84550; 85025; 85046; 86850; 86860; 86870; 86880; 86900; 86901; 86905; 86921; 86978; 87086; 87428; 88184; 88185; 88307; 93005; 93306; 96361; 96374; 96375; J0169; J0665; J0744; J1100; J1459; J1815; J2003; J2250; J2270; J2405; J2704; J7512; P9016; Q9967

== ENCOUNTER 2025-03-15 16:01 | Inpatient (IN) | payer MEDICARE, MEDICAID ==
[2025-03-15 17:17] LABS: Hematocrit 26.7 % (36.0-47.0); Hemoglobin 8.6 g/dL (12.0-16.0); Mean Corpuscular Hemoglobin 30.2 pg (27.0-31.0); Mean Corpuscular Volume 93.7 fL (78.0-98.0); Platelet Count 304 10x3/uL (130-400); Red Blood Cell (RBC) Count 2.85 mill/uL (4.20-5.40); White Blood Cell (WBC) Count 11.00 10x3/uL (4.8-10.8)
[2025-03-15 17:41] LABS: Anisocytosis SLIGHT = 6-15 cells HPF (0-5); Burr Cells SLIGHT = 2-5 cells HPF (0-1); Nucleated RBC (Manual Ct) 1 % (0); Platelet Adequacy Comment Platelets Normal; Polychromasia SLIGHT = 2-3 cells HPF (0-2); Schistocytes SLIGHT = 2-5 cells HPF (0-1); Smudge Cells 7.8 %
[2025-03-15 18:11] LABS: Actual Bicarbonate (HCO3v) 19.7 mEq/L (22-28); Base Excess -2.2 mEq/L (-2.0 to +3.0); Calcium, Ionized (venous) 1.03 mmol/L (1.16-1.32); Chloride (VBG) 92 mmol/L (98-106); Hematocrit-VBG 26 % (36.0-47.0); Hemoglobin (Hb) 8.9 g/dL (11.7-16.1); Potassium (VBG) 4.74 mmol/L (3.70-5.30); Sodium 124 mmol/L (133-146)
[2025-03-15 18:31] LABS: Bacteria/HPF None Seen HPF (None Seen); CAUTI Indications for Culture Dysuria,urgency,freq; Glucose, Urine (Dipstick) Greater than 1000 mg/dL (Negative); Leukocyte Negative Leu/uL (Negative); Protein, Urine (Dipstick) Negative (Neg-Trace); RBC/HPF 0-3 HPF (0-3); Specific Gravity, Urine 1.031 (1.002-1.036); WBC/HPF 0-3 HPF (0-3); Yeast-Budding Rare HPF (None Seen)
[2025-03-15 18:33] LABS: ALT (SGPT) 23 U/L (Less than 34); AST (SGOT) 22 U/L (11-34); Albumin 3.0 g/dL (3.1-4.5); Alkaline Phosphatase 152 U/L (40-110); Anion Gap 14 mmol/L (10-20); BUN (Urea Nitrogen) 22 mg/dL (9.8-20.1); Bilirubin, Total 2.5 mg/dL (0.3-1.2); Calc. Creatinine Clearance 0 mL/min (70-130); Calcium 8.6 mg/dL (7.8-10.44); Carbon Dioxide 20 mmol/L (23-31); Chloride 91 mmol/L (98-107); Globulin 3.1 g/dL (2.4-3.5); Lipase 29 U/L (8-78); Magnesium 2.5 mg/dL (1.6-2.6); Potassium 4.7 mmol/L (3.5-5.1); Sodium 120 mmol/L (136-145)
[2025-03-15 18:36] LABS: Glucose 814 mg/dL (80-115)
[2025-03-15 18:38] LABS: Osmolality, Serum 311 mOsm/kg (280-301)
[2025-03-15 18:57] LABS: Urine Culture Reflex No No
[2025-03-15] MEDS ORDERED: Dextrose 50% Abboject 50 ML SYRINGE SLOW IVP PRN (19:09)
[2025-03-15] MEDS ORDERED: Acetaminophen 325 MG TAB PO PRN (19:09)
[2025-03-15] MEDS ORDERED: Calcium Carbonate 500 MG ChewTAB PO PRN (19:09)
[2025-03-15] MEDS ORDERED: Melatonin 3 MG TAB PO PRN (19:09)
[2025-03-15] MEDS ORDERED: NS 0.9% w/ 20 MEQ KCL 1,000 ML IV PRN ×2 (19:09)
[2025-03-15] MEDS ORDERED: Ondansetron PF 4 MG/2 ML Vial IVP PRN (19:09)
[2025-03-15] MEDS ORDERED: INSULIN REGULAR IN 0.9 % NACL 100 ML IVPB SCH (19:15)
[2025-03-15 20:19] LABS: Osmolality, Serum 307 mOsm/kg (280-301)
[2025-03-15] MEDS ORDERED: INSULIN REGULAR IN 0.9 % NACL 100 ML ONE (20:25)
[2025-03-15 21:38] LABS: Anion Gap 18 mmol/L (10-20); BUN (Urea Nitrogen) 24 mg/dL (9.8-20.1); Calc. Creatinine Clearance 0 mL/min (70-130); Calcium 8.6 mg/dL (7.8-10.44); Carbon Dioxide 21 mmol/L (23-31); Chloride 97 mmol/L (98-107); Glucose 531 mg/dL (80-115); Potassium 4.5 mmol/L (3.5-5.1); Sodium 131 mmol/L (136-145)
[2025-03-15 23:00] VITALS: BMI 36.1
[2025-03-15 23:48] LABS: Anion Gap 18 mmol/L (10-20); BUN (Urea Nitrogen) 23 mg/dL (9.8-20.1); Calc. Creatinine Clearance 88 mL/min (70-130); Calcium 8.9 mg/dL (7.8-10.44); Carbon Dioxide 22 mmol/L (23-31); Chloride 99 mmol/L (98-107); Glucose 322 mg/dL (80-115); Potassium 3.9 mmol/L (3.5-5.1); Sodium 135 mmol/L (136-145)
[2025-03-15] MEDS: Pregabalin 50 MG CAP PO SCH ×2 (23:48→23:55)
[2025-03-16] MEDS: D5 1/2 NS w/20 mEq KCL 1,000 ML IV PRN (01:35)
[2025-03-16 01:36] LABS: Osmolality, Serum 293 mOsm/kg (280-301)
[2025-03-16 04:49] LABS: Hematocrit 23.7 % (36.0-47.0); Hemoglobin 7.6 g/dL (12.0-16.0); Mean Corpuscular Hemoglobin 29.5 pg (27.0-31.0); Mean Corpuscular Volume 91.9 fL (78.0-98.0); Platelet Count 303 10x3/uL (130-400); Red Blood Cell (RBC) Count 2.58 mill/uL (4.20-5.40); White Blood Cell (WBC) Count 12.96 10x3/uL (4.8-10.8)
[2025-03-16 05:00] LABS: ALT (SGPT) 19 U/L (Less than 34); AST (SGOT) 25 U/L (11-34); Albumin 2.9 g/dL (3.1-4.5); Alkaline Phosphatase 100 U/L (40-110); Anion Gap 8 mmol/L (10-20); BUN (Urea Nitrogen) 20 mg/dL (9.8-20.1); Bilirubin, Total 2.9 mg/dL (0.3-1.2); Calc. Creatinine Clearance 126 mL/min (70-130); Calcium 8.4 mg/dL (7.8-10.44); Carbon Dioxide 24 mmol/L (23-31); Chloride 105 mmol/L (98-107); Globulin 2.8 g/dL (2.4-3.5); Glucose 185 mg/dL (80-115); Potassium 4.3 mmol/L (3.5-5.1); Sodium 133 mmol/L (136-145)
[2025-03-16 05:31] LABS: Anisocytosis SLIGHT = 6-15 cells HPF (0-5); Basophilic Stippling SLIGHT = 1-2 cells HPF (None Seen); Nucleated RBC (Manual Ct) 1 % (0); Platelet Adequacy Comment Platelets Normal; Polychromasia SLIGHT = 2-3 cells HPF (0-2); Smudge Cells 5.8 %
[2025-03-16] MEDS: Insulin Glargine 30 UNITS/0.3 ML VIAL SC SCH ×2 (06:03→21:00)
[2025-03-16] MEDS ORDERED: Glucagon 1 MG/ML KIT IM PRN (08:15)
[2025-03-16] MEDS ORDERED: Dextrose 50% Abboject 50 ML SYRINGE SLOW IVP PRN (08:15)
[2025-03-16] MEDS: Pantoprazole 40 MG DR.TAB PO SCH (08:57)
[2025-03-16] MEDS: Losartan 25 MG TAB PO SCH (08:57)
[2025-03-16] MEDS: Enoxaparin 40 MG (0.4 mL) SYRINGE SC SCH (08:58)
[2025-03-16] MEDS: Mupirocin 1 GM TUBE TP SCH (08:59)
[2025-03-16] MEDS ORDERED: PNEUMOC 20-VAL CONJ-DIP CRM/PF 0.5 ML SYRINGE IM ONE (09:00)
[2025-03-16] MEDS: Pregabalin 50 MG CAP PO SCH (10:17)
[2025-03-16 15:14] VITALS: BMI 36.3
[2025-03-16] MEDS: NS 0.9% w/ 20 MEQ KCL 1,000 ML IV SCH (20:18)
[2025-03-17 06:08] LABS: Hematocrit 22.4 % (36.0-47.0); Hemoglobin 7.1 g/dL (12.0-16.0); Mean Corpuscular Hemoglobin 30.6 pg (27.0-31.0); Mean Corpuscular Volume 96.6 fL (78.0-98.0); Platelet Count 274 10x3/uL (130-400); Red Blood Cell (RBC) Count 2.32 mill/uL (4.20-5.40); White Blood Cell (WBC) Count 11.48 10x3/uL (4.8-10.8)
[2025-03-17 06:16] LABS: Anion Gap 9 mmol/L (10-20); BUN (Urea Nitrogen) 18 mg/dL (9.8-20.1); Calc. Creatinine Clearance 114 mL/min (70-130); Calcium 7.7 mg/dL (7.8-10.44); Carbon Dioxide 22 mmol/L (23-31); Chloride 108 mmol/L (98-107); Glucose 332 mg/dL (80-115); Magnesium 2.2 mg/dL (1.6-2.6); Potassium 4.2 mmol/L (3.5-5.1); Sodium 135 mmol/L (136-145)
[2025-03-17 06:30] LABS: Anisocytosis SLIGHT = 6-15 cells HPF (0-5); Nucleated RBC (Manual Ct) 1 % (0); Platelet Adequacy Comment Platelets Normal; Polychromasia SLIGHT = 2-3 cells HPF (0-2)
[2025-03-17] MEDS: predniSONE 20 MG TAB PO SCH (09:45)
[2025-03-17] MEDS: Senokot S 8.6-50 MG TAB PO PRN (09:55)
[2025-03-17 13:43] VITALS: BP 105/60; TEMP 98.2
== END 2025-03-17 15:45 | disposition home or self-care (01) | DRG 638 ==
LOC: ERS 16:01 → ERHOLD 19:07 → CCU 22:32 → T4-B 03-16 19:53
PROVIDERS: ADMIT Internal Medicine; ATTEND Family Medicine
DX: E11.00 Type 2 diabetes mellitus with hyperosmolarity without nonketotic hyperglycemic-hyperosmolar coma (NKHHC) (principal); C91.10 Chronic lymphocytic leukemia of B-cell type not having achieved remission; E87.1 Hypo-osmolality and hyponatremia; E11.65 Type 2 diabetes mellitus with hyperglycemia; I25.10 Atherosclerotic heart disease of native coronary artery without angina pectoris; G47.33 Obstructive sleep apnea (adult) (pediatric); I10 Essential (primary) hypertension; E78.5 Hyperlipidemia, unspecified; E66.9 Obesity, unspecified; Z86.73 Personal history of transient ischemic attack (TIA), and cerebral infarction without residual deficits; Z88.8 Allergy status to other drugs, medicaments and biological substances; Z88.0 Allergy status to penicillin; Z91.013 Allergy to seafood; Z79.899 Other long term (current) drug therapy; Z98.890 Other specified postprocedural states; E11.40 Type 2 diabetes mellitus with diabetic neuropathy, unspecified; D64.9 Anemia, unspecified; Z86.718 Personal history of other venous thrombosis and embolism; R74.01 Elevation of levels of liver transaminase levels; F32.A Depression, unspecified
CPT/HCPCS: 36415; 36416; 80048; 80053; 81001; 82010; 82805; 83605; 83690; 83735; 83930; 84100; 84484; 85025; 87040; 87389; 93005; 94760; 96365; 96376; J1650; J1815; J3480; J7030; J7512

== ENCOUNTER 2025-04-14 11:13 | Outpatient (CLI) | payer MEDICARE, MEDICAID | END 2025-04-14 11:14 | disposition home or self-care (01) | LOC: RAD 11:13 | PROVIDERS: ATTEND Nurse Practitioner Family | DX: M79.672 Pain in left foot (principal); R22.9 Localized swelling, mass and lump, unspecified ==

== ENCOUNTER 2025-05-02 05:13 | Inpatient (IN) | payer MEDICARE, MEDICAID ==
[2025-05-02 06:42] VITALS: BMI 37.6
[2025-05-02] MEDS ORDERED: Acetaminophen 325 MG TAB PO PRN (08:15)
[2025-05-02] MEDS ORDERED: Glucagon 1 MG/ML KIT IM PRN (08:15)
[2025-05-02] MEDS ORDERED: Ondansetron PF 4 MG/2 ML Vial IVP PRN (08:15)
[2025-05-02] MEDS ORDERED: Dextrose 50% Abboject 50 ML SYRINGE SLOW IVP PRN (08:15)
[2025-05-02] MEDS: Famotidine/PF 20 mg/2ml Vial SLOW IVP SCH (09:55)
[2025-05-02 10:01] LABS: Hematocrit 19.5 % (36.0-47.0); Hemoglobin 5.9 g/dL (12.0-16.0); Mean Corpuscular Hemoglobin 29.5 pg (27.0-31.0); Mean Corpuscular Volume 97.5 fL (78.0-98.0); Platelet Count 275 10x3/uL (130-400); Red Blood Cell (RBC) Count 2.00 mill/uL (4.20-5.40); White Blood Cell (WBC) Count 16.46 10x3/uL (4.8-10.8)
[2025-05-02 10:09] LABS: INR-International Normal Ratio 1.3; PTT 29.2 sec (22.9-36.1); Prothrombin Time 15.9 sec (12.0-14.7)
[2025-05-02 10:12] LABS: ALT (SGPT) 18 U/L (Less than 34); AST (SGOT) 29 U/L (11-34); Albumin 2.4 g/dL (3.1-4.5); Alkaline Phosphatase 113 U/L (40-110); Anion Gap 10 mmol/L (10-20); BUN (Urea Nitrogen) 12 mg/dL (9.8-20.1); Bilirubin, Total 5.0 mg/dL (0.3-1.2); Calc. Creatinine Clearance 147 mL/min (70-130); Calcium 7.9 mg/dL (7.8-10.44); Carbon Dioxide 26 mmol/L (23-31); Chloride 106 mmol/L (98-107); Globulin 2.6 g/dL (2.4-3.5); Glucose 258 mg/dL (80-115); Potassium 3.5 mmol/L (3.5-5.1); Sodium 138 mmol/L (136-145)
[2025-05-02 10:32] LABS: Anisocytosis MODERATE=16-30 cells HPF (0-5); Macrocytosis SLIGHT = 6-15 cells HPF (0-5); Nucleated RBC (Manual Ct) 16 % (0); Ovalocytes SLIGHT = 2-5 cells HPF (0-1); Platelet Adequacy Comment Platelets Normal; Polychromasia MODERATE = 3-4 cells HPF (0-2); Smudge Cells 7.8 %
[2025-05-02 10:33] LABS: Toxic Granulation MODERATE
[2025-05-02] MEDS: predniSONE 20 MG TAB PO SCH (12:41)
[2025-05-02] MEDS: Enoxaparin 100 MG (1 mL) SYRINGE SC SCH (17:27)
[2025-05-02] MEDS: Insulin Glargine 30 UNITS/0.3 ML VIAL SC SCH (20:49)
[2025-05-03 04:21] LABS: Hematocrit 22.3 % (36.0-47.0); Hemoglobin 6.6 g/dL (12.0-16.0); Mean Corpuscular Hemoglobin 29.3 pg (27.0-31.0); Mean Corpuscular Volume 99.1 fL (78.0-98.0); Platelet Count 315 10x3/uL (130-400); Red Blood Cell (RBC) Count 2.25 mill/uL (4.20-5.40); White Blood Cell (WBC) Count 19.02 10x3/uL (4.8-10.8)
[2025-05-03 04:33] LABS: Anion Gap 16 mmol/L (10-20); BUN (Urea Nitrogen) 17 mg/dL (9.8-20.1); Calc. Creatinine Clearance 142 mL/min (70-130); Calcium 8.2 mg/dL (7.8-10.44); Carbon Dioxide 19 mmol/L (23-31); Chloride 102 mmol/L (98-107); Glucose 375 mg/dL (80-115); Potassium 3.6 mmol/L (3.5-5.1); Sodium 133 mmol/L (136-145)
[2025-05-03 04:34] LABS: Uric Acid 8.8 mg/dL (2.5-6.2)
[2025-05-03 04:51] LABS: Anisocytosis SLIGHT = 6-15 cells HPF (0-5); Macrocytosis SLIGHT = 6-15 cells HPF (0-5); Nucleated RBC (Manual Ct) 14 % (0); Platelet Adequacy Comment Platelets Normal; Polychromasia SLIGHT = 2-3 cells HPF (0-2)
[2025-05-03] MEDS: Losartan 25 MG TAB PO SCH (10:03)
[2025-05-03] MEDS: Pantoprazole 40 MG DR.TAB PO SCH (10:04)
[2025-05-03] MEDS: Mupirocin 1 GM TUBE TP SCH (10:05)
[2025-05-03] MEDS: Ondansetron 2MG/ML MDV 10 MG in Sodium Chloride 0.9% 50 ML IVPB SCH (14:14)
[2025-05-03] MEDS: Pregabalin 50 MG CAP PO SCH (16:07)
[2025-05-03] MEDS: Melatonin 3 MG TAB PO PRN (21:14)
[2025-05-03] MEDS: Senokot S 8.6-50 MG TAB PO PRN (21:16)
[2025-05-04 06:19] LABS: Hematocrit 28.9 % (36.0-47.0); Hemoglobin 9.0 g/dL (12.0-16.0); Mean Corpuscular Hemoglobin 27.5 pg (27.0-31.0); Mean Corpuscular Volume 88.4 fL (78.0-98.0); Platelet Count 243 10x3/uL (130-400); Red Blood Cell (RBC) Count 3.27 mill/uL (4.20-5.40); White Blood Cell (WBC) Count 16.80 10x3/uL (4.8-10.8)
[2025-05-04 06:23] LABS: ALT (SGPT) 16 U/L (Less than 34); AST (SGOT) 41 U/L (11-34); Albumin 2.5 g/dL (3.1-4.5); Alkaline Phosphatase 113 U/L (40-110); Anion Gap 16 mmol/L (10-20); BUN (Urea Nitrogen) 24 mg/dL (9.8-20.1); Bilirubin, Total 4.8 mg/dL (0.3-1.2); Calc. Creatinine Clearance 126 mL/min (70-130); Calcium 8.2 mg/dL (7.8-10.44); Carbon Dioxide 19 mmol/L (23-31); Chloride 106 mmol/L (98-107); Globulin 2.8 g/dL (2.4-3.5); Glucose 152 mg/dL (80-115); Potassium 3.7 mmol/L (3.5-5.1); Sodium 137 mmol/L (136-145)
[2025-05-04 07:36] LABS: Anisocytosis SLIGHT = 6-15 cells HPF (0-5); Nucleated RBC (Manual Ct) 29 % (0); Ovalocytes SLIGHT = 2-5 cells HPF (0-1); Platelet Adequacy Comment Platelets Normal; Poikilocytosis SLIGHT = 6-15 cells HPF (0-5); Polychromasia SLIGHT = 2-3 cells HPF (0-2)
[2025-05-04] MEDS: Apixaban 5 MG TAB PO SCH (21:47)
[2025-05-05 05:54] LABS: ALT (SGPT) 12 U/L (Less than 34); AST (SGOT) 28 U/L (11-34); Albumin 2.6 g/dL (3.1-4.5); Alkaline Phosphatase 129 U/L (40-110); Anion Gap 14 mmol/L (10-20); BUN (Urea Nitrogen) 26 mg/dL (9.8-20.1); Bilirubin, Total 3.3 mg/dL (0.3-1.2); Calc. Creatinine Clearance 108 mL/min (70-130); Calcium 8.2 mg/dL (7.8-10.44); Carbon Dioxide 21 mmol/L (23-31); Chloride 108 mmol/L (98-107); Globulin 2.7 g/dL (2.4-3.5); Glucose 227 mg/dL (80-115); Potassium 3.3 mmol/L (3.5-5.1); Sodium 140 mmol/L (136-145)
[2025-05-05 10:30] LABS: Anisocytosis SLIGHT = 6-15 cells HPF (0-5); Nucleated RBC (Manual Ct) 18 % (0); Platelet Adequacy Comment Platelets Normal; Polychromasia SLIGHT = 2-3 cells HPF (0-2)
[2025-05-05] MEDS: FLU (Fluad Triv) 25-26 (65UP)PF 45 MCG/0.5 ML Syringe IM ONE (10:40)
[2025-05-05 10:42] LABS: Hematocrit 27.5 % (36.0-47.0); Hemoglobin 9.0 g/dL (12.0-16.0); Mean Corpuscular Hemoglobin 28.4 pg (27.0-31.0); Mean Corpuscular Volume 86.8 fL (78.0-98.0); Platelet Count 220 10x3/uL (130-400); Red Blood Cell (RBC) Count 3.17 mill/uL (4.20-5.40); White Blood Cell (WBC) Count 9.22 10x3/uL (4.8-10.8)
[2025-05-06 05:39] LABS: Hematocrit 25.9 % (36.0-47.0); Hemoglobin 8.3 g/dL (12.0-16.0); Mean Corpuscular Hemoglobin 27.9 pg (27.0-31.0); Mean Corpuscular Volume 87.2 fL (78.0-98.0); Platelet Count 224 10x3/uL (130-400); Red Blood Cell (RBC) Count 2.97 mill/uL (4.20-5.40); White Blood Cell (WBC) Count 7.87 10x3/uL (4.8-10.8)
[2025-05-06 06:01] LABS: Anion Gap 13 mmol/L (10-20); BUN (Urea Nitrogen) 15 mg/dL (9.8-20.1); Calc. Creatinine Clearance 142 mL/min (70-130); Calcium 8.1 mg/dL (7.8-10.44); Carbon Dioxide 20 mmol/L (23-31); Chloride 111 mmol/L (98-107); Glucose 200 mg/dL (80-115); Potassium 3.7 mmol/L (3.5-5.1); Sodium 140 mmol/L (136-145)
[2025-05-06 06:16] LABS: Anisocytosis SLIGHT = 6-15 cells HPF (0-5); Microcytosis SLIGHT = 6-15 cells HPF (0-5); Nucleated RBC (Manual Ct) 10 % (0); Platelet Adequacy Comment Platelets Normal; Polychromasia MODERATE = 3-4 cells HPF (0-2); Smudge Cells 10.8 %; Spherocytes SLIGHT = 1-5 cells HPF (None Seen)
[2025-05-07 11:03] LABS: Hematocrit 26.0 % (36.0-47.0); Hemoglobin 8.3 g/dL (12.0-16.0); Mean Corpuscular Hemoglobin 28.1 pg (27.0-31.0); Mean Corpuscular Volume 88.1 fL (78.0-98.0); Platelet Count 195 10x3/uL (130-400); Red Blood Cell (RBC) Count 2.95 mill/uL (4.20-5.40); White Blood Cell (WBC) Count 7.41 10x3/uL (4.8-10.8)
[2025-05-07 11:23] LABS: Bilirubin, Total 2.8 mg/dL (0.3-1.2)
[2025-05-07 11:51] LABS: Macrocytosis SLIGHT = 6-15 cells HPF (0-5); Nucleated RBC (Manual Ct) 57 % (0); Ovalocytes SLIGHT = 2-5 cells HPF (0-1); Platelet Adequacy Comment Platelets Normal; Polychromasia SLIGHT = 2-3 cells HPF (0-2)
[2025-05-07] MEDS: Senokot S 8.6-50 MG TAB PO SCH ×2 (12:41→21:22)
[2025-05-07] MEDS: Insulin Glargine 30 UNITS/0.3 ML VIAL SC SCH (22:11)
[2025-05-08 05:16] LABS: Hematocrit 25.5 % (36.0-47.0); Hemoglobin 8.1 g/dL (12.0-16.0); Mean Corpuscular Hemoglobin 28.4 pg (27.0-31.0); Mean Corpuscular Volume 89.5 fL (78.0-98.0); Platelet Count 181 10x3/uL (130-400); Red Blood Cell (RBC) Count 2.85 mill/uL (4.20-5.40); White Blood Cell (WBC) Count 5.01 10x3/uL (4.8-10.8)
[2025-05-08 05:28] LABS: ALT (SGPT) 15 U/L (Less than 34); AST (SGOT) 30 U/L (11-34); Albumin 2.4 g/dL (3.1-4.5); Alkaline Phosphatase 116 U/L (40-110); Anion Gap 11 mmol/L (10-20); BUN (Urea Nitrogen) 12 mg/dL (9.8-20.1); Bilirubin, Total 2.4 mg/dL (0.3-1.2); Calc. Creatinine Clearance 168 mL/min (70-130); Calcium 7.9 mg/dL (7.8-10.44); Carbon Dioxide 22 mmol/L (23-31); Chloride 110 mmol/L (98-107); Globulin 2.6 g/dL (2.4-3.5); Glucose 207 mg/dL (80-115); Potassium 3.3 mmol/L (3.5-5.1); Sodium 140 mmol/L (136-145)
[2025-05-08 05:47] LABS: Anisocytosis MODERATE=16-30 cells HPF (0-5); Microcytosis SLIGHT = 6-15 cells HPF (0-5); Nucleated RBC (Manual Ct) 54 % (0); Platelet Adequacy Comment Platelets Normal; Polychromasia MODERATE = 3-4 cells HPF (0-2); Smudge Cells 19.0 %
[2025-05-08] MEDS: Insulin Glargine 30 UNITS/0.3 ML VIAL SC SCH (09:01)
[2025-05-08] MEDS ORDERED: Lidocaine 1% (PF) 30 ML VIAL IJ SCH (11:15)
[2025-05-09 04:53] LABS: Hematocrit 29.5 % (36.0-47.0); Hemoglobin 8.7 g/dL (12.0-16.0); Mean Corpuscular Hemoglobin 28.2 pg (27.0-31.0); Mean Corpuscular Volume 95.8 fL (78.0-98.0); Platelet Count 159 10x3/uL (130-400); Red Blood Cell (RBC) Count 3.08 mill/uL (4.20-5.40); White Blood Cell (WBC) Count 2.16 10x3/uL (4.8-10.8)
[2025-05-09 05:04] LABS: ALT (SGPT) 17 U/L (Less than 34); AST (SGOT) 26 U/L (11-34); Albumin 2.6 g/dL (3.1-4.5); Alkaline Phosphatase 154 U/L (40-110); Anion Gap 15 mmol/L (10-20); BUN (Urea Nitrogen) 16 mg/dL (9.8-20.1); Bilirubin, Total 2.4 mg/dL (0.3-1.2); Calc. Creatinine Clearance 158 mL/min (70-130); Calcium 8.4 mg/dL (7.8-10.44); Carbon Dioxide 21 mmol/L (23-31); Chloride 108 mmol/L (98-107); Globulin 2.7 g/dL (2.4-3.5); Glucose 301 mg/dL (80-115); Magnesium 2.1 mg/dL (1.6-2.6); Potassium 3.7 mmol/L (3.5-5.1); Sodium 140 mmol/L (136-145)
[2025-05-09 05:22] LABS: Anisocytosis MARKED = >30 cells HPF (0-5); Burr Cells SLIGHT = 2-5 cells HPF (0-1); Macrocytosis MODERATE=16-30 cells HPF (0-5); Microcytosis SLIGHT = 6-15 cells HPF (0-5); Nucleated RBC (Manual Ct) 51 % (0); Platelet Adequacy Comment Platelets Normal; Polychromasia MODERATE = 3-4 cells HPF (0-2); Smudge Cells 24.3 %
[2025-05-09 11:41] VITALS: BP 141/64; TEMP 99.3
== END 2025-05-09 12:30 | disposition home or self-care (01) | DRG 175 ==
LOC: 2NO 06:31 → OBSVTOIN 08:15
PROVIDERS: ADMIT Internal Medicine; ATTEND Internal Medicine
PROC: 02PYX3Z Removal of Infusion Device from Great Vessel, External Approach (ICD-10-PCS; principal; 2025-05-08)
DX: I26.99 Other pulmonary embolism without acute cor pulmonale (principal); J96.01 Acute respiratory failure with hypoxia; C91.10 Chronic lymphocytic leukemia of B-cell type not having achieved remission; I82.412 Acute embolism and thrombosis of left femoral vein; D59.10 Autoimmune hemolytic anemia, unspecified; Z88.8 Allergy status to other drugs, medicaments and biological substances; E11.9 Type 2 diabetes mellitus without complications; I10 Essential (primary) hypertension; Z88.0 Allergy status to penicillin; E78.5 Hyperlipidemia, unspecified; I25.10 Atherosclerotic heart disease of native coronary artery without angina pectoris; Z86.73 Personal history of transient ischemic attack (TIA), and cerebral infarction without residual deficits; E80.6 Other disorders of bilirubin metabolism; D64.9 Anemia, unspecified; E11.65 Type 2 diabetes mellitus with hyperglycemia; G47.33 Obstructive sleep apnea (adult) (pediatric); E66.9 Obesity, unspecified
CPT/HCPCS: 36415; 36416; 36430; 71045; 80048; 80053; 82247; 83036; 83605; 83615; 83735; 83880; 84484; 84550; 85025; 85046; 85610; 85730; 86850; 86870; 86880; 86900; 86901; 86922; 93306; 93970; 96413; 97139; J1308; J1650; J1815; J2270; J2272; J2405; J7050; J7512; J9071; P9016

== ENCOUNTER 2025-05-10 23:22 | Inpatient (IN) | payer OTHER, MEDICAID ==
[2025-05-11 01:18] LABS: Hematocrit 24.9 % (36.0-47.0); Hemoglobin 7.8 g/dL (12.0-16.0); Mean Corpuscular Hemoglobin 28.4 pg (27.0-31.0); Mean Corpuscular Volume 90.5 fL (78.0-98.0); Platelet Count 158 10x3/uL (130-400); Red Blood Cell (RBC) Count 2.75 mill/uL (4.20-5.40); White Blood Cell (WBC) Count 1.15 10x3/uL (4.8-10.8)
[2025-05-11 01:30] LABS: ALT (SGPT) 14 U/L (Less than 34); AST (SGOT) 23 U/L (11-34); Albumin 2.6 g/dL (3.1-4.5); Alkaline Phosphatase 108 U/L (40-110); Anion Gap 16 mmol/L (10-20); BUN (Urea Nitrogen) 15 mg/dL (9.8-20.1); Bilirubin, Total 2.9 mg/dL (0.3-1.2); Calc. Creatinine Clearance 0 mL/min (70-130); Calcium 8.0 mg/dL (7.8-10.44); Carbon Dioxide 21 mmol/L (23-31); Chloride 101 mmol/L (98-107); Globulin 2.8 g/dL (2.4-3.5); Glucose 523 mg/dL (80-115); Potassium 3.8 mmol/L (3.5-5.1); Sodium 134 mmol/L (136-145)
[2025-05-11 01:43] LABS: Anisocytosis MODERATE=16-30 cells HPF (0-5); Burr Cells MODERATE= 6-15 cells HPF (0-1); Dohle Bodies SLIGHT; Macrocytosis SLIGHT = 6-15 cells HPF (0-5); Nucleated RBC (Manual Ct) 2 % (0); Ovalocytes SLIGHT = 2-5 cells HPF (0-1); Plasma Cells 1 % (0-0); Platelet Adequacy Comment Platelets Normal; Poikilocytosis SLIGHT = 6-15 cells HPF (0-5); Polychromasia MODERATE = 3-4 cells HPF (0-2); Smudge Cells 18.7 %
[2025-05-11] MEDS ORDERED: Glucagon 1 MG/ML KIT IM PRN (03:21)
[2025-05-11] MEDS ORDERED: Ondansetron PF 4 MG/2 ML Vial IVP PRN (03:21)
[2025-05-11] MEDS ORDERED: Guaifenesin DM 100-10/5 ML UDCUP PO PRN (03:21)
[2025-05-11] MEDS ORDERED: Melatonin 3 MG TAB PO PRN (03:21)
[2025-05-11] MEDS ORDERED: Calcium Carbonate 500 MG ChewTAB PO PRN (03:21)
[2025-05-11] MEDS ORDERED: Dextrose 50% Abboject 50 ML SYRINGE SLOW IVP PRN (03:21)
[2025-05-11 04:40] VITALS: BMI 38.1
[2025-05-11] MEDS: Furosemide 20 MG (2 mL) VIAL SLOW IVP SCH ×2 (05:15→15:22)
[2025-05-11] MEDS: Pregabalin 50 MG CAP PO SCH (09:42)
[2025-05-11] MEDS: Losartan 25 MG TAB PO SCH (09:42)
[2025-05-11] MEDS: Pantoprazole 40 MG DR.TAB PO SCH (09:44)
[2025-05-11] MEDS: Apixaban 5 MG TAB PO SCH (09:44)
[2025-05-11] MEDS: PNEUMOC 20-VAL CONJ-DIP CRM/PF 0.5 ML SYRINGE IM ONE (09:44)
[2025-05-11] MEDS: FLU (Fluad Triv) 25-26 (65UP)PF 45 MCG/0.5 ML Syringe IM ONE (09:47)
[2025-05-11] MEDS: Insulin Glargine 30 UNITS/0.3 ML VIAL SC SCH (09:57)
[2025-05-11 12:32] LABS: Bacteria/HPF None Seen HPF (None Seen); Glucose, Urine (Dipstick) Greater than 1000 mg/dL (Negative); Leukocyte Negative Leu/uL (Negative); Protein, Urine (Dipstick) Negative (Neg-Trace); RBC/HPF 0-3 HPF (0-3); Specific Gravity, Urine 1.020 (1.002-1.036); WBC/HPF 0-3 HPF (0-3)
[2025-05-11 13:45] LABS: Legionella Urinary Ag Negative (Negative); Strep pneumo Urine Ag NEGATIVE (NEGATIVE)
[2025-05-11] MEDS: LevoFLOXacin 750 mg/D5W 750 MG in Premix 1 BAG IVPB SCH (15:23)
[2025-05-11] MEDS: Vancomycin (BATCH) 2.5 GM in Premix 1 BAG IVPB SCH (17:20)
[2025-05-11] MEDS ORDERED: Vancomycin 1 GM in Premix 1 BAG IVPB SCH (21:00)
[2025-05-12 04:49] LABS: Hematocrit 21.3 % (36.0-47.0); Hemoglobin 6.6 g/dL (12.0-16.0); Mean Corpuscular Hemoglobin 28.4 pg (27.0-31.0); Mean Corpuscular Volume 91.8 fL (78.0-98.0); Platelet Count 150 10x3/uL (130-400); Red Blood Cell (RBC) Count 2.32 mill/uL (4.20-5.40); White Blood Cell (WBC) Count 1.01 10x3/uL (4.8-10.8)
[2025-05-12 04:50] LABS: #Basophils Less than 0.03 10x3/uL (0.0-0.2); #Eosinophils Less than 0.03 10x3/uL (0.0-0.7); #Monocytes 0.13 10x3/uL (0.11-0.59); #Neutrophils 0.28 10x3/uL (1.40-6.50); %Basophils 0.0 % (0.0-1.0); %Eosinophils 0.0 % (0.0-10.0); %Lymphocytes 45.5 % (21.0-51.0); %Monocytes 12.9 % (0.0-10.0); %Neutrophils 27.7 % (42.0-75.0)
[2025-05-12 05:00] LABS: ALT (SGPT) 8 U/L (Less than 34); AST (SGOT) 15 U/L (11-34); Albumin 2.0 g/dL (3.1-4.5); Alkaline Phosphatase 71 U/L (40-110); Anion Gap 10 mmol/L (10-20); BUN (Urea Nitrogen) 13 mg/dL (9.8-20.1); Bilirubin, Total 2.8 mg/dL (0.3-1.2); Calc. Creatinine Clearance 173 mL/min (70-130); Calcium 8.1 mg/dL (7.8-10.44); Carbon Dioxide 25 mmol/L (23-31); Chloride 109 mmol/L (98-107); Globulin 2.6 g/dL (2.4-3.5); Glucose 131 mg/dL (80-115); Magnesium 2.1 mg/dL (1.6-2.6); Potassium 3.7 mmol/L (3.5-5.1); Sodium 140 mmol/L (136-145)
[2025-05-12 05:06] LABS: Vancomycin, Random 12.9 ug/mL (See Comment)
[2025-05-12 05:30] LABS: Anisocytosis SLIGHT = 6-15 cells HPF (0-5); Nucleated RBC (Manual Ct) 4 % (0); Platelet Adequacy Comment Platelets Normal; Polychromasia SLIGHT = 2-3 cells HPF (0-2)
[2025-05-12] MEDS: Insulin Glargine 30 UNITS/0.3 ML VIAL SC SCH (10:17)
[2025-05-12] MEDS: Vancomycin 1 GM in Premix 1 BAG IVPB SCH (10:19)
[2025-05-12] MEDS: Apixaban 5 MG TAB PO SCH (23:01)
[2025-05-13 07:39] LABS: ALT (SGPT) 8 U/L (Less than 34); AST (SGOT) 19 U/L (11-34); Albumin 2.1 g/dL (3.1-4.5); Alkaline Phosphatase 77 U/L (40-110); Anion Gap 14 mmol/L (10-20); BUN (Urea Nitrogen) 13 mg/dL (9.8-20.1); Bilirubin, Total 3.4 mg/dL (0.3-1.2); Calc. Creatinine Clearance 175 mL/min (70-130); Calcium 8.3 mg/dL (7.8-10.44); Carbon Dioxide 25 mmol/L (23-31); Chloride 105 mmol/L (98-107); Globulin 2.8 g/dL (2.4-3.5); Glucose 155 mg/dL (80-115); Potassium 3.6 mmol/L (3.5-5.1); Sodium 140 mmol/L (136-145)
[2025-05-13 08:29] LABS: Hematocrit 26.2 % (36.0-47.0); Hemoglobin 8.4 g/dL (12.0-16.0); Mean Corpuscular Hemoglobin 28.7 pg (27.0-31.0); Mean Corpuscular Volume 89.4 fL (78.0-98.0); Platelet Count 100 10x3/uL (130-400); Red Blood Cell (RBC) Count 2.93 mill/uL (4.20-5.40); White Blood Cell (WBC) Count 0.86 10x3/uL (4.8-10.8)
[2025-05-13 09:40] LABS: Anisocytosis SLIGHT = 6-15 cells HPF (0-5); Burr Cells MODERATE= 6-15 cells HPF (0-1); Macrocytosis SLIGHT = 6-15 cells HPF (0-5); Nucleated RBC (Manual Ct) 5 % (0); Other Cell Types 2.4; Platelet Adequacy Comment Platelets Normal; Poikilocytosis SLIGHT = 6-15 cells HPF (0-5); Polychromasia MODERATE = 3-4 cells HPF (0-2); Schistocytes SLIGHT = 2-5 cells HPF (0-1); Smudge Cells 11.9 %
[2025-05-13] MEDS: Acetaminophen 325 MG TAB PO PRN (10:11)
[2025-05-13 14:27] LABS: Hematocrit 27.0 % (36.0-47.0); Hemoglobin 8.3 g/dL (12.0-16.0); Mean Corpuscular Hemoglobin 27.9 pg (27.0-31.0); Mean Corpuscular Volume 90.9 fL (78.0-98.0); Platelet Count 200 10x3/uL (130-400); Red Blood Cell (RBC) Count 2.97 mill/uL (4.20-5.40); White Blood Cell (WBC) Count 0.64 10x3/uL (4.8-10.8)
[2025-05-13 14:31] LABS: ALT (SGPT) 10 U/L (Less than 34); AST (SGOT) 16 U/L (11-34); Albumin 2.1 g/dL (3.1-4.5); Alkaline Phosphatase 78 U/L (40-110); Anion Gap 11 mmol/L (10-20); BUN (Urea Nitrogen) 14 mg/dL (9.8-20.1); Bilirubin, Total 2.3 mg/dL (0.3-1.2); Calc. Creatinine Clearance 175 mL/min (70-130); Calcium 8.4 mg/dL (7.8-10.44); Carbon Dioxide 25 mmol/L (23-31); Chloride 106 mmol/L (98-107); Globulin 2.8 g/dL (2.4-3.5); Glucose 229 mg/dL (80-115); Potassium 3.9 mmol/L (3.5-5.1); Sodium 138 mmol/L (136-145)
[2025-05-13 14:59] LABS: Anisocytosis SLIGHT = 6-15 cells HPF (0-5); Nucleated RBC (Manual Ct) 22 % (0); Platelet Adequacy Comment Platelets Normal; Polychromasia SLIGHT = 2-3 cells HPF (0-2); Smudge Cells 16.7 %
[2025-05-14 10:12] LABS: Hematocrit 30.0 % (36.0-47.0); Hemoglobin 9.4 g/dL (12.0-16.0); Mean Corpuscular Hemoglobin 27.9 pg (27.0-31.0); Mean Corpuscular Volume 89.0 fL (78.0-98.0); Platelet Count 207 10x3/uL (130-400); Red Blood Cell (RBC) Count 3.37 mill/uL (4.20-5.40); White Blood Cell (WBC) Count 1.09 10x3/uL (4.8-10.8)
[2025-05-14 10:37] LABS: Anisocytosis SLIGHT = 6-15 cells HPF (0-5); Macrocytosis SLIGHT = 6-15 cells HPF (0-5); Nucleated RBC (Manual Ct) 11 % (0); Ovalocytes SLIGHT = 2-5 cells HPF (0-1); Platelet Adequacy Comment Platelets Normal; Poikilocytosis SLIGHT = 6-15 cells HPF (0-5); Polychromasia SLIGHT = 2-3 cells HPF (0-2); Schistocytes SLIGHT = 2-5 cells HPF (0-1)
[2025-05-14 11:07] LABS: Vancomycin, Random 10.7 ug/mL (See Comment)
[2025-05-14 11:11] LABS: ALT (SGPT) 10 U/L (Less than 34); AST (SGOT) 25 U/L (11-34); Albumin 2.2 g/dL (3.1-4.5); Alkaline Phosphatase 83 U/L (40-110); Anion Gap 16 mmol/L (10-20); BUN (Urea Nitrogen) 10 mg/dL (9.8-20.1); Bilirubin, Total 1.8 mg/dL (0.3-1.2); Calc. Creatinine Clearance 171 mL/min (70-130); Calcium 8.5 mg/dL (7.8-10.44); Carbon Dioxide 23 mmol/L (23-31); Chloride 105 mmol/L (98-107); Globulin 2.9 g/dL (2.4-3.5); Glucose 155 mg/dL (80-115); Potassium 3.5 mmol/L (3.5-5.1); Sodium 140 mmol/L (136-145)
[2025-05-14] MEDS: Senokot S 8.6-50 MG TAB PO PRN (17:44)
[2025-05-14] MEDS: Vancomycin 1 GM in Premix 1 BAG IVPB SCH (20:14)
[2025-05-15 08:59] LABS: Vancomycin, Random 8.7 ug/mL (See Comment)
[2025-05-15 09:02] LABS: ALT (SGPT) 11 U/L (Less than 34); AST (SGOT) 24 U/L (11-34); Albumin 2.1 g/dL (3.1-4.5); Alkaline Phosphatase 78 U/L (40-110); Anion Gap 14 mmol/L (10-20); BUN (Urea Nitrogen) 10 mg/dL (9.8-20.1); Bilirubin, Total 1.3 mg/dL (0.3-1.2); Calc. Creatinine Clearance 177 mL/min (70-130); Calcium 8.0 mg/dL (7.8-10.44); Carbon Dioxide 26 mmol/L (23-31); Chloride 106 mmol/L (98-107); Globulin 2.3 g/dL (2.4-3.5); Glucose 115 mg/dL (80-115); Potassium 3.7 mmol/L (3.5-5.1); Sodium 142 mmol/L (136-145)
[2025-05-15 09:08] LABS: Hematocrit 27.6 % (36.0-47.0); Hemoglobin 8.5 g/dL (12.0-16.0); Mean Corpuscular Hemoglobin 27.9 pg (27.0-31.0); Mean Corpuscular Volume 90.5 fL (78.0-98.0); Platelet Count 258 10x3/uL (130-400); Red Blood Cell (RBC) Count 3.05 mill/uL (4.20-5.40); White Blood Cell (WBC) Count 1.53 10x3/uL (4.8-10.8)
[2025-05-15 10:06] LABS: Anisocytosis MODERATE=16-30 cells HPF (0-5); Burr Cells SLIGHT = 2-5 cells HPF (0-1); Macrocytosis SLIGHT = 6-15 cells HPF (0-5); Microcytosis SLIGHT = 6-15 cells HPF (0-5); Nucleated RBC (Manual Ct) 2 % (0); Ovalocytes SLIGHT = 2-5 cells HPF (0-1); Platelet Adequacy Comment Platelets Normal; Polychromasia MODERATE = 3-4 cells HPF (0-2); Smudge Cells 14.3 %
[2025-05-15] MEDS: Vancomycin 1.25 GM / NS 250 ML VIAL-2-BAG IVPB SCH (20:37)
[2025-05-15] MEDS ORDERED: Apixaban 5 MG TAB PO SCH (21:00)
[2025-05-16 05:03] LABS: ALT (SGPT) 12 U/L (Less than 34); AST (SGOT) 27 U/L (11-34); Albumin 2.1 g/dL (3.1-4.5); Alkaline Phosphatase 74 U/L (40-110); Anion Gap 15 mmol/L (10-20); BUN (Urea Nitrogen) 9 mg/dL (9.8-20.1); Bilirubin, Total 0.9 mg/dL (0.3-1.2); Calc. Creatinine Clearance 177 mL/min (70-130); Calcium 8.1 mg/dL (7.8-10.44); Carbon Dioxide 25 mmol/L (23-31); Chloride 108 mmol/L (98-107); Globulin 2.5 g/dL (2.4-3.5); Glucose 76 mg/dL (80-115); Hematocrit 26.7 % (36.0-47.0); Hemoglobin 8.2 g/dL (12.0-16.0); Mean Corpuscular Hemoglobin 28.2 pg (27.0-31.0); Mean Corpuscular Volume 91.8 fL (78.0-98.0); Platelet Count 260 10x3/uL (130-400); Potassium 3.2 mmol/L (3.5-5.1); Red Blood Cell (RBC) Count 2.91 mill/uL (4.20-5.40); Sodium 145 mmol/L (136-145); White Blood Cell (WBC) Count 2.59 10x3/uL (4.8-10.8)
[2025-05-16 05:36] LABS: Anisocytosis SLIGHT = 6-15 cells HPF (0-5); Platelet Adequacy Comment Platelets Normal; Polychromasia SLIGHT = 2-3 cells HPF (0-2)
[2025-05-17 04:52] LABS: Hematocrit 28.4 % (36.0-47.0); Hemoglobin 8.7 g/dL (12.0-16.0); Mean Corpuscular Hemoglobin 28.1 pg (27.0-31.0); Mean Corpuscular Volume 91.6 fL (78.0-98.0); Platelet Count 292 10x3/uL (130-400); Red Blood Cell (RBC) Count 3.10 mill/uL (4.20-5.40); White Blood Cell (WBC) Count 3.74 10x3/uL (4.8-10.8)
[2025-05-17 05:02] LABS: ALT (SGPT) 14 U/L (Less than 34); AST (SGOT) 23 U/L (11-34); Albumin 2.1 g/dL (3.1-4.5); Alkaline Phosphatase 87 U/L (40-110); Anion Gap 15 mmol/L (10-20); BUN (Urea Nitrogen) 8 mg/dL (9.8-20.1); Bilirubin, Total 0.8 mg/dL (0.3-1.2); Calc. Creatinine Clearance 154 mL/min (70-130); Calcium 8.1 mg/dL (7.8-10.44); Carbon Dioxide 23 mmol/L (23-31); Chloride 109 mmol/L (98-107); Globulin 2.7 g/dL (2.4-3.5); Glucose 205 mg/dL (80-115); Potassium 3.5 mmol/L (3.5-5.1); Sodium 143 mmol/L (136-145)
[2025-05-17 05:32] LABS: Platelet Adequacy Comment Platelets Normal; Polychromasia SLIGHT = 2-3 cells HPF (0-2); Smudge Cells 21.6 %
[2025-05-17] MEDS: Apixaban 5 MG TAB PO SCH (09:12)
[2025-05-17] MEDS: Insulin Glargine 30 UNITS/0.3 ML VIAL SC SCH (09:14)
[2025-05-17 12:02] VITALS: BMI 36.7
[2025-05-17 13:49] VITALS: BP 144/76; TEMP 99.1
== END 2025-05-17 15:37 | disposition home or self-care (01) | DRG 808 ==
LOC: ERS 23:22 → 2NO 05-11 03:16 → MSONC 05-16 14:50
PROVIDERS: ADMIT Student in an Organized Health Care Education/Training Program; ATTEND Family Medicine
PROC: 3E03329 Introduction of Other Anti-infective into Peripheral Vein, Percutaneous Approach (ICD-10-PCS; 2025-05-11)
PROC: 3E0234Z Introduction of Serum, Toxoid and Vaccine into Muscle, Percutaneous Approach (ICD-10-PCS; 2025-05-11)
PROC: 3E02340 Introduction of Influenza Vaccine into Muscle, Percutaneous Approach (ICD-10-PCS; 2025-05-11)
PROC: 079T3ZX Drainage of Bone Marrow, Percutaneous Approach, Diagnostic (ICD-10-PCS; principal; 2025-05-12)
DX: D70.1 Agranulocytosis secondary to cancer chemotherapy (principal); I26.99 Other pulmonary embolism without acute cor pulmonale; J96.01 Acute respiratory failure with hypoxia; I50.33 Acute on chronic diastolic (congestive) heart failure; D59.10 Autoimmune hemolytic anemia, unspecified; I82.412 Acute embolism and thrombosis of left femoral vein; D84.9 Immunodeficiency, unspecified; R78.81 Bacteremia; D61.810 Antineoplastic chemotherapy induced pancytopenia; R50.81 Fever presenting with conditions classified elsewhere; R53.81 Other malaise; Z88.8 Allergy status to other drugs, medicaments and biological substances; Z88.0 Allergy status to penicillin; Z91.013 Allergy to seafood; E11.9 Type 2 diabetes mellitus without complications; G47.33 Obstructive sleep apnea (adult) (pediatric); E66.01 Morbid (severe) obesity due to excess calories; I25.10 Atherosclerotic heart disease of native coronary artery without angina pectoris; Z98.890 Other specified postprocedural states; Z86.73 Personal history of transient ischemic attack (TIA), and cerebral infarction without residual deficits; I11.0 Hypertensive heart disease with heart failure; E88.09 Other disorders of plasma-protein metabolism, not elsewhere classified; Z68.36 Body mass index [BMI] 36.0-36.9, adult; Z79.899 Other long term (current) drug therapy; R59.0 Localized enlarged lymph nodes; B96.89 Other specified bacterial agents as the cause of diseases classified elsewhere; Z23 Encounter for immunization
CPT/HCPCS: 36415; 36416; 36430; 38222; 71275; 77002; 77012; 80053; 80202; 81001; 83010; 83615; 83735; 83880; 84145; 84484; 85025; 85046; 85097; 86141; 86850; 86900; 86901; 86922; 87040; 87077; 87081; 87149; 87186; 87449; 87899; 88184; 88185; 88189; 88237; 88264; 88280; 88305; 88311; 88313; 88341; 88342; 90471; 90653; 90677; 93005; 96360; 96361; C1830; G0009; J1815; J1940; J1956; J3010; J3373; J7030; J7050; J7512; P9016; Q9967